=== PATIENT | female | born 1955 | race African-American/Black ===

== ENCOUNTER 2019-11-08 14:43 | Inpatient (IN) | payer BC, MEDICARE ==
[~2019-11-08] VITALS: Ht 170.8 cm; Wt 83.6 kg
[~2019-11-08 14:43] MED LIST: ASPI325T8 PO; CETI10TA74 PO; DILT240C2 PO; HYDR-2145 PO; PANT40TA77 PO
[2019-11-08] MEDS ORDERED: CETIRIZINE HCL 10 MG TABLET. PO PRN (16:00)
--- NOTE | 2019-11-08 16:06 | PDOC1 ---
History and Physical Date of Admission Date of Admission DATE: 11/08/19 TIME: 16:01 Identification/Chief Complaint Chief Complaint Right thumb drainage Source Source: Patient History of Present Illness History of Present Illness Ms Goodwin is a 64 yo F w/ PMHx allergic rhinitis, palpitations who comes to ED accompanied by her . She has been having pain and drainage from her right thumb for some time. She was seen by orthopedic surgery outpatient and has surgery scheduled for 11/16/2019, however after her appointment today she noted a blister and more drainage from her right thumb. She has been having difficulty with this thumb for the last 4 years ever since a laceration. No labs available. X-ray and MRI confirmed the above. 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 Does not smoke or drink. Past Medical History Cardiovascular: HTN Past Surgical History Past Surgical History: Hysterectomy, Other Family History Family History: Other Social History ALCOHOL: none Drugs: None Current Medications Current Medications Active Scripts Active Reported Protonix (Pantoprazole Sodium) 40 Mg Tablet.dr 1 Tab PO DAILY Zyrtec (Cetirizine Hcl) 10 Mg Tablet 1 Tab PO PRN DAILY PRN Aspirin 325 Mg Tablet 975 Mg PO TID PRN PRN Cardizem Cd (Diltiazem Hcl) 240 Mg Cap.er.24h 1 Cap PO DAILY Allergies Allergies: Coded Allergies: Penicillins (Verified Allergy, Intermediate, 06/12/15) codeine (Verified Allergy, Intermediate, 06/12/15) ROS General: YES: Fatigue, Malaise; No: Chills, Night Sweats, Appetite, Other PSYCHOLOGICAL ROS: YES: Anxiety; No: Behavioral Disorder, Concentration difficultie, Decreased libido, Depression, Disorientation, Hallucinations, Hostility, Irritablity, Memory difficulties, Mood Swings, Obsessive thoughts, Physical abuse, Sexual abuse, Sleep disturbances, Suicidal ideation, Other Eyes: No Blurry vision, No Decreased vision, No Double vision, No Dry eyes, No Excessive tearing, No Eye Pain, No Itchy Eyes, No Loss of vision, No Photophobia, No Scotomata, No Uses contacts, No Uses glasses, No Other HEENT: No: Heacaches, Visual Changes, Hearing change, Nasal congestion, Nasal discharge, Oral lesions, Sinus pain, Sore Throat, Epistaxis, Sneezing, Snoring, Tinnitus, Vertigo, Vocal changes, Other ALLERGY AND IMMUNOLOGY: No: Hives, Insect Bite Sensitivity, Itchy/Watery Eyes, Nasal Congestion, Post Nasal Drip, Seasonal Allergies, Other Hematological and Lymphatic: No: Bleeding Problems, Blood Clots, Blood Transfusions, Brusing, Night Sweats, Pallor, Swollen Lymph Nodes, Other ENDOCRINE: No: Breast Changes, Galactorrhea, Hair Pattern Changes, Hot Flashes, Malaise/lethargy, Mood Swings, Palpitations, Polydipsia/polyuria, Skin Changes, Temperature Intolerance, Unexpected Weight Changes, Other Breast: No New/Changing Breast Lumps, No Nipple changes, No Nipple discharge, No Other Respiratory: No: Cough, Hemoptysis, Orthopnea, Pleuritic Pain, Shortness of breath, SOB with excertion, Sputum Changes, Stridor, Tachypnea, Wheezing, Other Cardiovascular: No Chest Pain, No Palpitations, No Orthopnea, No Paroxysmal Noc. Dyspnea, No Edema, No Lt Headedness, No Other Gastrointestinal: No Nausea, No Vomiting, No Abdominal Pain, No Diarrhea, No Constipation, No Melena, No Hematochezia, No Other Genitourinary: No Dysuria, No Frequency, No Incontinence, No Hematuria, No Retention, No Discharge, No Urgency, No Pain, No Flank Pain, No Other, No , No , No , No , No , No , No Musculoskeletal: Yes Pain In: (right thumb); No Gait Disturbance, No Joint Pain, No Joint Stiffness, No Joint Swelling, No Muscle Pain, No Muscular Weakness, No Swelling In:, No Other Neurological: No Behavorial Changes, No Bowel/Bladder ControlChng, No Confusion, No Dizziness, No Gait Disturbance, No Headaches, No Impaired Coord/balance, No Memory Loss, No Numbness/Tingling, No Seizures, No Speech Problems, No Tremors, No Visual Changes, No Weakness, No Other Skin: Yes Rash, Yes Skin Lesion Changes; No Dry Skin, No Eczema, No Hair Changes, No Lumps, No Mole Changes, No Mottling, No Nail Changes, No Pruritus, No Other, No Acne Physical Exam General: Alert, Oriented X3, Cooperative, No acute distress HEENT: Atraumatic, PERRLA, EOMI, Mucous membr. moist/pink Lungs: Clear to auscultation, Normal air movement Heart: S1S2, RRR, no thrills, no rubs, no gallops, no murmurs Abdomen: Normal bowel sounds, Soft, No tenderness, No hepatosplenomegaly, No masses Rectal Exam: not examined Extremities: No clubbing, No cyanosis, No edema, Normal pulses, Other (Right thumb with medial proximal phalanx blister with drainage) Skin: No rashes, No breakdown, No significant lesion Neuro: Normal gait, Normal speech, Strength at 5/5 X4 ext, Normal tone, Sensation intact, Cranial nerves 3-12 NL, Reflexes 2+ Psych/Mental Status: Mental status NL, Mood NL Vitals Vitals Vital Signs Date Time Temp Pulse Resp B/P (MAP) Pulse Ox O2 Delivery O2 Flow Rate FiO2 11/08/19 15:05 97.7 117 14 170/85 (113) 96 Room Air 97.7 Images Images 10/25/2019: MRI confirmed osteomyelitis of right thumb. Right thumb XR: 3 views right thumb show lucency and cortical expansion of the base of the pr oximal phalanx right thumb with associated soft tissue swelling and demineralization of the radial aspect of the base of the proximal phalanx. The margins of the lytic lesion in the base of the proximal phalanx are well defined but show no surrounding sclerosis. No definite intra-articular extension. Rest of the bones are unremarkable IMPRESSION: Radiographic findings are nonspecific but compatible with a Greg's abscess with soft tissue extension on the radial aspect of the proximal phalanx right thumb. Correlate with MR imaging results. VTE Prophylaxis Ordered VTE Prophylaxis Devices: Yes VTE Pharmacological Prophylaxi: No Assessment/Plan Assessment/Plan A/P: Right thumb osteomyelitis and abscess - with drainage. Will need surgery and buttermaker antibiotics given known bone involvement. She is aware of likely need for PICC placement. Will consult ID as well. Anxiety - related to symptoms and work Palpitations - on diltiazem, will continue FEN - General diet PPX - SCDs FULL CODE Dispo - inpatient Justifications for Admission Other Justification ENRRIQUE DE LEON MD Nov 08, 2019 16:06
--- NOTE | 2019-11-08 16:17 | PHYS DOC ---
Past Medical History Past Medical History: Hypertension Past Surgical History: Cholecystectomy, Hysterectomy Smoking Status: Never Smoker Alcohol Use: None Drug Use: None General Adult EDM: Chief Complaint: THUMB HPI: HPI: Patient is a 64 year old AA female who presents to the emergency department with complaints of increased swelling in her right thumb after seeing Dr. Ghotra in the office today. Patient reports she has osteomyelitis of her right thumb and she is supposed to have surgery. She complains of intermittent pain in the right thumb. She denies any recent injury or trauma. She states that she has been fighting osteomyelitis for the last 4 years after she had to have sutures. The patient denies any new injury or recent trauma. She denies any fever, cough, shortness of breath, nausea, vomiting, diarrhea, or abdominal pain. She denies any drainage from the site. She currently denies any pain. Review of Systems: Review of Systems: Constitutional: Denies fever or chills. [] Respiratory: Denies cough or shortness of breath. [] GI: Denies abdominal pain, nausea, vomiting, or diarrhea. [] : Denies dysuria. [] Musculoskeletal: See HPI Integument: See HPI Neurologic: Denies focal weakness or sensory changes. [] Complete ROS is negative unless otherwise stated in the HPI. Heart Score: Risk Factors: Risk Factors: DM, Current or recent (<one month) smoker, HTN, HLP, family history of CAD, obesity. Risk Scores: Score 0 - 3: 2.5% MACE over next 6 weeks - Discharge Home Score 4 - 6: 20.3% MACE over next 6 weeks - Admit for Clinical Observation Score 7 - 10: 72.7% MACE over next 6 weeks - Early Invasive Strategies Current Medications: Current Medications Medications (Trade) Dose Ordered Sig/Gage Start Time Stop Time Status Last Admin Dose Admin Cetirizine HCl (ZyrTEC) 10 mg PRN DAILY PRN 11/08/19 16:00 Diltiazem HCl (Cardizem 24hr Cd) 240 mg DAILY 11/09/19 09:00 Pantoprazole Sodium (Protonix) 40 mg DAILYAC 11/09/19 07:30 Allergies: Allergies: Allergies Coded Allergies Type Severity Reaction Last Updated Verified Penicillins Allergy Intermediate 06/12/15 Yes codeine Allergy Intermediate 06/12/15 Yes Physical Exam: PE: Constitutional: Well developed, well nourished, no acute distress, non-toxic appearance. [] HENT: Normocephalic, atraumatic, bilateral external ears normal, nose normal. [] Eyes: PERRLA, EOMI, conjunctiva normal, no discharge. [] Neck: Normal range of motion, no stridor. [] Cardiovascular:Heart rate regular rhythm Lungs & Thorax: Respirations even and unlabored, no retractions, no respiratory distress Skin: Warm, dry, no erythema, no rash; 1 cm diameter area of purulent drainage noted to right thumb no active bleeding or drainage noted, no surrounding warmth [] Extremities: Right thumb: 1+ edema, PMS intact, no cyanosis Neurologic: Alert and oriented X 3, no focal deficits noted. [] Psychologic: Affect normal, judgement normal, mood normal. [] Current Patient Data: Vital Signs: Vital Signs Date Time Temp Pulse Resp B/P (MAP) Pulse Ox O2 Delivery O2 Flow Rate FiO2 11/08/19 15:05 97.7 117 14 170/85 (113) 96 Room Air 97.7 EKG: EKG: [] Radiology/Procedures: Radiology/Procedures: [] Course & Med Decision Making: Course & Med Decision Making Pertinent Labs and Imaging studies reviewed. (See chart for details) 1545- Spoke with Dr. Del Valle, will admit pt to the hospitalist and have patient be NPO after midnight. 1559-spoke with Dr. Monte who is the admitting physician, and care was assumed following discussion of patient. Will admit pt to med/surg for R thumb osteomyelitis Patient's vital signs stable. Patient remains afebrile, appears nontoxic, respirations even and unlabored. [] Dragon Disclaimer: Dragon Disclaimer: This electronic medical record was generated, in whole or in part, using a voice recognition dictation system. Departure Departure Impression: Primary Impression: Finger osteomyelitis, right Disposition: ADMITTED INPATIENT Admitting Physician: DAVID (Daisy) Condition: STABLE Referrals: DASHAWN MAO MD (PCP) Justicifation of Admission Dx: Justifications for Admission: Justification of Admission Dx: Yes Sepsis: Infection JANNET ELIAS WIND [employer] TECHNICIAN Nov 08, 2019 16:17
[2019-11-08] MEDS ORDERED: LORazepam 0.5 MG TABLET PO ONE (16:45)
[2019-11-08 17:06] LABS: BASO % 1 % (0-3); EOS % 0 % (0-3); HEMATOCRIT 41.1 % (36.0-47.0); LYMPH # 1.3 x10^3/uL (1.0-4.8); LYMPH % 21 % (24-48); MEAN CORPUSCULAR HEMOGLOBIN 30 pg (25-35); MEAN CORPUSCULAR HGB CONC 34 g/dL (31-37); MEAN CORPUSCULAR VOLUME 88 fL (79-100); MONO # 0.6 x10^3/uL (0.0-1.1); MONO % 10 % (0-9); NEUT # 4.3 x10^3/uL (1.8-7.7); NEUT % 68 % (31-73); PLATELET COUNT 250 x10^3/uL (140-400); RED BLOOD COUNT 4.65 x10^6/uL (3.50-5.40); RED CELL DISTRIBUTION WIDTH 13.8 % (11.5-14.5); WHITE BLOOD COUNT 6.3 x10^3/uL (4.0-11.0)
[2019-11-08 17:17] LABS: CALCIUM 9.9 mg/dL (8.5-10.1); CREATININE 0.9 mg/dL (0.6-1.0); GFR 75.8; POTASSIUM 3.3 mmol/L (3.5-5.1)
[2019-11-08 17:22] LABS: ALBUMIN 4.1 g/dL (3.4-5.0); TOTAL BILIRUBIN 0.3 mg/dL (0.2-1.0); TOTAL PROTEIN 8.1 g/dL (6.4-8.2)
[2019-11-08] MEDS ORDERED: ONDANSETRON PF 4 MG/2 ML VIAL. IV PRN (17:30)
[2019-11-08] MEDS ORDERED: ACETAMINOPHEN 325 MG TABLET. PO PRN (17:30)
[2019-11-08 18:08] LABS: BILIRUBIN,URINE NEGATIVE (NEG); CLARITY,URINE CLEAR; COLOR,URINE YELLOW; NITRITE,URINE NEGATIVE (NEG); PH,URINE 6.5 (<5.0-8.0); PROTEIN,URINE NEGATIVE (NEG-TRACE); UROBILINOGEN,URINE 0.2 mg/dL (0.2 mg/dL)
[2019-11-08 18:13] LABS: BACTERIA,URINE 0 /HPF (0-FEW); WBC,URINE 0 /HPF (0-4)
[2019-11-08 18:49] VITALS: BP 150/92
[2019-11-08 19:20] VITALS: BP 149/82
[2019-11-08] MEDS ORDERED: POTASSIUM CHLORIDE 20 MEQ TABLET.ER. PO ONE (20:30)
[2019-11-08] MEDS ORDERED: ZOLPIDEM 5 MG TABLET. PO PRN (21:00)
[2019-11-08 23:00] VITALS: BP 149/99
[2019-11-09 03:00] VITALS: BP 161/87
[2019-11-09 05:38] LABS: CALCIUM 10.3 mg/dL (8.5-10.1); CREATININE 0.9 mg/dL (0.6-1.0); GFR 75.8; MAGNESIUM 1.7 mg/dL (1.8-2.4); POTASSIUM 3.7 mmol/L (3.5-5.1)
[2019-11-09 07:00] VITALS: BP 135/89
[2019-11-09] MEDS: PANTOPRAZOLE 40 MG TABLET.DR. PO SCH (07:30)
--- NOTE | 2019-11-09 08:54 | PDOC ---
Infectious Disease Note Vital Sign Vital Signs Vital Signs Date Time Temp Pulse Resp B/P (MAP) Pulse Ox O2 Delivery O2 Flow Rate FiO2 11/09/19 08:27 85 161/87 11/09/19 03:00 97.7 17 99 Room Air 97.7 Labs Lab Laboratory Tests Test 11/08/19 15:47 11/08/19 16:40 11/08/19 16:52 11/08/19 16:54 C-Reactive Protein, Quantitative < 0.5 mg/L (0-3.3) Urine Collection Type Void Urine Color Yellow Urine Clarity Clear Urine pH 6.5 (<5.0-8.0) Urine Specific [place] 1.015 (1.000-1.030) Urine Protein Negative mg/dL (NEG-TRACE) Urine Glucose (UA) Negative mg/dL (NEG) Urine Ketones (Stick) Negative mg/dL (NEG) Urine Blood Trace (NEG) Urine Nitrite Negative (NEG) Urine Bilirubin Negative (NEG) Urine Urobilinogen Dipstick 0.2 mg/dL (0.2 mg/dL) Urine Leukocyte Esterase Negative (NEG) Urine RBC 1-2 /HPF (0-2) Urine WBC 0 /HPF (0-4) Urine Bacteria 0 /HPF (0-FEW) Urine Mucus Slight /LPF White Blood Count 6.3 x10^3/uL (4.0-11.0) Red Blood Count 4.65 x10^6/uL (3.50-5.40) Hemoglobin 14.0 g/dL (12.0-15.5) Hematocrit 41.1 % (36.0-47.0) Mean Corpuscular Volume 88 fL (79-100) Mean Corpuscular Hemoglobin 30 pg (25-35) Mean Corpuscular Hemoglobin Concent 34 g/dL (31-37) Red Cell Distribution Width 13.8 % (11.5-14.5) Platelet Count 250 x10^3/uL (140-400) Neutrophils (%) (Auto) 68 % (31-73) Lymphocytes (%) (Auto) 21 % (24-48) Monocytes (%) (Auto) 10 % (0-9) Eosinophils (%) (Auto) 0 % (0-3) Basophils (%) (Auto) 1 % (0-3) Neutrophils # (Auto) 4.3 x10^3/uL (1.8-7.7) Lymphocytes # (Auto) 1.3 x10^3/uL (1.0-4.8) Monocytes # (Auto) 0.6 x10^3/uL (0.0-1.1) Eosinophils # (Auto) 0.0 x10^3/uL (0.0-0.7) Basophils # (Auto) 0.0 x10^3/uL (0.0-0.2) Sodium Level 139 mmol/L (136-145) Potassium Level 3.3 mmol/L (3.5-5.1) Chloride Level 101 mmol/L (98-107) Carbon Dioxide Level 28 mmol/L (21-32) Anion Gap 10 (6-14) Blood Urea Nitrogen 13 mg/dL (7-20) Creatinine 0.9 mg/dL (0.6-1.0) Estimated GFR (Cockcroft-Gault) 75.8 BUN/Creatinine Ratio 14 (6-20) Glucose Level 115 mg/dL (70-99) Calcium Level 9.9 mg/dL (8.5-10.1) Total Bilirubin 0.3 mg/dL (0.2-1.0) Aspartate Amino Transf (AST/SGOT) 21 U/L (15-37) Alanine Aminotransferase (ALT/SGPT) 24 U/L (14-59) Alkaline Phosphatase 72 U/L (46-116) Total Protein 8.1 g/dL (6.4-8.2) Albumin 4.1 g/dL (3.4-5.0) Albumin/Globulin Ratio 1.0 (1.0-1.7) SARS-CoV-2 Antigen (Rapid) Negative (NEGATIVE) Test 11/09/19 04:40 Sodium Level 140 mmol/L (136-145) Potassium Level 3.7 mmol/L (3.5-5.1) Chloride Level 104 mmol/L (98-107) Carbon Dioxide Level 28 mmol/L (21-32) Anion Gap 8 (6-14) Blood Urea Nitrogen 10 mg/dL (7-20) Creatinine 0.9 mg/dL (0.6-1.0) Estimated GFR (Cockcroft-Gault) 75.8 Glucose Level 95 mg/dL (70-99) Calcium Level 10.3 mg/dL (8.5-10.1) Magnesium Level 1.7 mg/dL (1.8-2.4) Objective Assessment pt seen, consult dictated Plan Plan of Care / ALFIE IRWIN MD Nov 09, 2019 08:54
--- NOTE | 2019-11-09 09:42 | NUR ---
SW following. Discussed with RN, pt from home with , room air, NPO. I&D today. SW will continue to follow for any discharge planning needs.
--- NOTE | 2019-11-09 09:43 | CONS ---
DATE OF CONSULTATION: 11/09/2019 REQUESTING PHYSICIAN: Dr. Villa. REASON FOR CONSULTATION: Thumb infection. HISTORY OF PRESENT ILLNESS: This is a 64-year-old -[place] female who I have seen in the office recently for this problem. The patient was referred to me by primary care for osteomyelitis of the thumb. The patient noticed swelling or a blister on the right thumb at the base of the thumb just a few days before I saw her. She reports having a laceration in 2016 and she thinks that may have anything to do with that, although she did not report any infection post laceration repair or any open wound or drainage, swelling, pain, and nothing. She actually started noticing some pain about 2 or 3 months ago and then she noticed the swelling. Before 2 or 3 months, she has had no symptoms or problem with that thumb or that area where approximately the laceration was repaired 4 years ago. The patient subsequently seen by primary care, x-ray was done, an MRI was done and the patient was referred to me and I referred her then. The patient had received a couple or 3 rounds of antibiotics by primary care, which I stopped and talked to Dr. Del Valle and referred her to Dr. Del Valle for I and D and getting a sample without any antibiotics on board, although the patient had received already a couple of rounds before. The patient did see Dr. Del Valle and surgery was scheduled and before then, the swelling got worse and she started draining, hence she came in and got admitted. The patient is supposed to have surgery today. The patient denies any fever, denies any nausea, vomiting, diarrhea. Denies any chest pain, shortness of breath, abdominal pain or new trauma or anything. PAST MEDICAL HISTORY: Positive for hypertension. PAST SURGICAL HISTORY: Has had hysterectomy. SOCIAL HISTORY: Negative for smoking, alcohol, or illicit drug use. ALLERGIES: ALLERGIC TO PENICILLIN. REVIEW OF SYSTEMS: As per HPI, all other systems reviewed and are negative. CURRENT MEDICATIONS: Reviewed. PHYSICAL EXAMINATION: GENERAL: Alert and oriented female, not in distress. VITAL SIGNS: Stable, afebrile. HEENT: NAD. NECK: Supple, no JVP, no lymphadenopathy. LUNGS: Clear. HEART: S1, S2 regular. ABDOMEN: Soft, nontender, no organomegaly. EXTREMITIES: No edema or cyanosis. SKIN: Unremarkable. Right thumb had swelling, which right now is not draining, appears to be abscess clinically. Rest of skin examination unremarkable. NEUROLOGIC: The patient is neurologically alert, awake and appropriate. No focal neurologic deficit. LABORATORY DATA: X-ray of the right hand showed radiographic findings are nonspecific, but compatible with a Greg's abscess with soft tissue extension onto the radial aspect of the proximal phalanx of the right thumb. The patient did have an MRI, which actually was more wishy-washy for what she has, could be this, could be that was as I remember, I do not have the report with me right now. CBC, white count is normal. Platelets are normal. BUN and creatinine is normal. Her C-reactive protein is less than 0.5. IMPRESSION: 1. Right thumb cold abscess. Inflammatory markers are not elevated. It could be cyst opening up or it could be tumor liquefied or it could be infection, which is very unusual. I do not believe there was anything to do with her laceration 4 years ago. 2. Hypertension. RECOMMEND: I and D has been planned. I specifically asked for bacterial, fungal and AFB stain and culture and especially also not to use the swab for AFB, need a material. This was also conveyed to Dr. Del Valle as well as to the OR staff through the patient's nurse and once we get the material out, then we will start her on empiric antibiotics until the culture results are available, supportive care and we will continue to follow. Discussed with the at the bedside. ALFIE IRWIN MD DR: ASHANTI/prashant JOB#: [id number] / [id number]
[2019-11-09 11:00] VITALS: BP 140/90
--- NOTE | 2019-11-09 12:41 | PDOC ---
[employer] PROGRESS NOTE Date of Service DOS: DATE: 11/09/19 TIME: 12:33 Chief Complaint Chief Complaint RIGHT thumb drainage proceeded by blister RIGHT thumb osteomyelitis Lacertion of RIGHT thumb 4 years ago with continued difficulty with healing History of Present Illness History of Present Illness 11/09/2019 Patient seen and examined Some drainage appreciated on RIGHT thumb Significant other at bedside Awaiting I&D scheduled for this afternoon History of Present Illness Ms Goodwin is a 64 yo F w/ PMHx allergic rhinitis, palpitations who comes to ED accompanied by her . She has been having pain and drainage from her right thumb for some time. She was seen by orthopedic surgery outpatient and has surgery scheduled for 11/16/2019, however after her appointment today she noted a blister and more drainage from her right thumb. She has been having difficulty with this thumb for the last 4 years ever since a laceration. No labs available. X-ray and MRI confirmed the above. 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 Does not smoke or drink. Vitals/I&O Vitals/I&O: Vital Signs Date Time Temp Pulse Resp B/P (MAP) Pulse Ox O2 Delivery O2 Flow Rate FiO2 11/09/19 11:00 97.8 103 16 140/90 (107) 99 Room Air 97.8 I & O 11/08/19 11/08/19 11/09/19 15:00 23:00 07:00 Intake Total 0 ml 0 ml Balance 0 ml 0 ml Physical Exam General: Alert, Oriented X3, Cooperative, No acute distress Extremities: No clubbing, No cyanosis, No edema, Other (Right thumb with medial proximal phalanx blister with drainage) Skin: No rashes, No breakdown, No significant lesion Labs Labs: Laboratory Tests Test 11/08/19 15:47 11/08/19 16:40 11/08/19 16:52 11/08/19 16:54 C-Reactive Protein, Quantitative < 0.5 mg/L (0-3.3) Urine Collection Type Void Urine Color Yellow Urine Clarity Clear Urine pH 6.5 (<5.0-8.0) Urine Specific [place] 1.015 (1.000-1.030) Urine Protein Negative mg/dL (NEG-TRACE) Urine Glucose (UA) Negative mg/dL (NEG) Urine Ketones (Stick) Negative mg/dL (NEG) Urine Blood Trace (NEG) Urine Nitrite Negative (NEG) Urine Bilirubin Negative (NEG) Urine Urobilinogen Dipstick 0.2 mg/dL (0.2 mg/dL) Urine Leukocyte Esterase Negative (NEG) Urine RBC 1-2 /HPF (0-2) Urine WBC 0 /HPF (0-4) Urine Bacteria 0 /HPF (0-FEW) Urine Mucus Slight /LPF White Blood Count 6.3 x10^3/uL (4.0-11.0) Red Blood Count 4.65 x10^6/uL (3.50-5.40) Hemoglobin 14.0 g/dL (12.0-15.5) Hematocrit 41.1 % (36.0-47.0) Mean Corpuscular Volume 88 fL (79-100) Mean Corpuscular Hemoglobin 30 pg (25-35) Mean Corpuscular Hemoglobin Concent 34 g/dL (31-37) Red Cell Distribution Width 13.8 % (11.5-14.5) Platelet Count 250 x10^3/uL (140-400) Neutrophils (%) (Auto) 68 % (31-73) Lymphocytes (%) (Auto) 21 % (24-48) Monocytes (%) (Auto) 10 % (0-9) Eosinophils (%) (Auto) 0 % (0-3) Basophils (%) (Auto) 1 % (0-3) Neutrophils # (Auto) 4.3 x10^3/uL (1.8-7.7) Lymphocytes # (Auto) 1.3 x10^3/uL (1.0-4.8) Monocytes # (Auto) 0.6 x10^3/uL (0.0-1.1) Eosinophils # (Auto) 0.0 x10^3/uL (0.0-0.7) Basophils # (Auto) 0.0 x10^3/uL (0.0-0.2) Sodium Level 139 mmol/L (136-145) Potassium Level 3.3 mmol/L (3.5-5.1) Chloride Level 101 mmol/L (98-107) Carbon Dioxide Level 28 mmol/L (21-32) Anion Gap 10 (6-14) Blood Urea Nitrogen 13 mg/dL (7-20) Creatinine 0.9 mg/dL (0.6-1.0) Estimated GFR (Cockcroft-Gault) 75.8 BUN/Creatinine Ratio 14 (6-20) Glucose Level 115 mg/dL (70-99) Calcium Level 9.9 mg/dL (8.5-10.1) Total Bilirubin 0.3 mg/dL (0.2-1.0) Aspartate Amino Transf (AST/SGOT) 21 U/L (15-37) Alanine Aminotransferase (ALT/SGPT) 24 U/L (14-59) Alkaline Phosphatase 72 U/L (46-116) Total Protein 8.1 g/dL (6.4-8.2) Albumin 4.1 g/dL (3.4-5.0) Albumin/Globulin Ratio 1.0 (1.0-1.7) SARS-CoV-2 Antigen (Rapid) Negative (NEGATIVE) Test 11/09/19 04:40 Sodium Level 140 mmol/L (136-145) Potassium Level 3.7 mmol/L (3.5-5.1) Chloride Level 104 mmol/L (98-107) Carbon Dioxide Level 28 mmol/L (21-32) Anion Gap 8 (6-14) Blood Urea Nitrogen 10 mg/dL (7-20) Creatinine 0.9 mg/dL (0.6-1.0) Estimated GFR (Cockcroft-Gault) 75.8 Glucose Level 95 mg/dL (70-99) Calcium Level 10.3 mg/dL (8.5-10.1) Magnesium Level 1.7 mg/dL (1.8-2.4) Review of Systems Review of Systems: denies SOB denies N/V/D Assessment and Plan Assessmemt and Plan Problems Medical Problems: (1) Finger osteomyelitis, right Status: Acute Assessment RIGHT thumb drainage proceeded by blister RIGHT thumb osteomyelitis Laceration of RIGHT thumb 4 years ago with continued difficulty with healing Plan Continue IV fluids Antibiotics per IV I&D planned for 11/08 DVT prophylaxis Discussed with RN Discussed with case managment Full code Comment Review of Relevant I have reviewed the following items rashard (where applicable) has been applied. Medications: Current Medications Medications (Trade) Dose Ordered Sig/Gage Route PRN Reason Start Time Stop Time Status Last Admin Dose Admin Diltiazem HCl (Cardizem 24hr Cd) 240 mg DAILY PO 11/09/19 09:00 11/09/19 08:27 Lorazepam (Ativan) 0.5 mg 1X ONCE PO 11/08/19 16:45 11/08/19 16:46 DC 11/08/19 17:13 Zolpidem Tartrate (Ambien) 5 mg PRN QHS PRN PO INSOMNIA 11/08/19 21:00 11/08/19 21:45 Ondansetron HCl (Zofran) 4 mg PRN Q4HRS PRN IV NAUSEA/VOMITING 11/08/19 17:30 11/09/19 08:26 Potassium Chloride (Klor-Con) 40 meq 1X ONCE PO 11/08/19 20:30 11/08/19 20:31 DC 11/08/19 20:24 Justifications for Admission Other Justification YORDY PLIETEZ III DO Nov 09, 2019 12:41
[2019-11-09] MEDS ORDERED: ONDANSETRON PF 4 MG/2 ML VIAL. ONE (13:16)
[2019-11-09] MEDS ORDERED: LIDOCAINE 2% PF 5 ML VIAL. ONE (13:16)
[2019-11-09] MEDS ORDERED: PROPOFOL 10 MG/ML (20ML) VIAL. IV ONE (13:16)
[2019-11-09] MEDS ORDERED: DEXAMETHASONE SOD PHOS 4 MG/ML VIAL ONE (13:16)
[2019-11-09] MEDS ORDERED: fentaNYL PF VIAL 100 MCG/2 ML VIAL ONE (13:16)
[2019-11-09] MEDS: IV RINGERS,LACTATED 1000ML 1,000 ML IV SCH ×2 (14:10→22:00)
[2019-11-09] MEDS ORDERED: MIDAZOLAM HCL/PF 2 MG/2 ML VIAL. ONE (14:20)
[2019-11-09] MEDS ORDERED: VANCOMYCIN 1 GM VIAL. ONE (14:57)
[2019-11-09] MEDS ORDERED: BUPIVACAINE-EPI 0.5%-1:200000 MPF 30 ML VIAL. ONE (15:06)
[2019-11-09] MEDS ORDERED: SEVOFLURANE 31 TO 60 MINUTES. IH ONE (15:18)
--- NOTE | 2019-11-09 15:33 | PDOC4 ---
Operative Note Operative Note Date of Procedure: November 09, 2019 Pre-Op Diagnosis: Acute osteomyelitis of phalanx of right hand - M86.141 (right thumb, osteomyelitis with bone abscess) Post-Op Diagnosis: Acute osteomyelitis of phalanx of right hand - M86.141 (right thumb, osteomyelitis with bone abscess) Procedure: Right thumb, incision of bone cortex, for osteomyelitis and bone abscess CPT 55658 Surgeon: Jason Del Valle MD Medical Technician Assistant: CRISTINA Moscoso Anesthesia: General EBL: 10 mL Specimens Obtained: Abscess tissue was sent in 2 separate specimen cups, one specimen is for Gram stain with aerobic, anaerobic and AFB. The other specimen cup with tissue is for fungal culture. There was not enough additional abscess material for pathology. Complications: none Drains: none Tourniquet: 250 mm Hg for 7 minutes Findings: Purulent drainage is present, and has developed since my examination yesterday. The findings were consistent with a bone abscess and osteomyelitis. A liquefied tumor is a remote possibility. Indications for Procedure: This patient is a 64-year-old with right thumb pain drainage and swelling. She did have a remote laceration to this about 5 years ago. X-rays MRI and examination are consistent mostly with osteomyelitis and a bone abscess which has begun to spontaneously drain. I had seen her in the office yesterday, and there was no drainage at that time and had scheduled her for surgery on a more elective basis for next week, however overnight the thumb began purulent drainage and I advised her to be admitted to the hospital and proceed with surgery more urgently because of the opening and drainage. She and I discussed the potential risks of surgery including digital nerve injury, tendon injury, recurrent or persistent infection, the potential for other diagnoses, development of stiffness, persistent drainage, scarring, stiffness, or other potential surgical or anesthetic complications. All of her questions about surgery were answered and she desires to proceed. Written consent was obtained. Procedure in Detail: The patient was identified in the preoperative holding area. The correct right thumb was marked by me. The patient was taken to the operating room where general anesthetic was used. The patient was positioned supine on the operating table and an arm board hand table was used. A tourniquet was applied to the upper portion of the limb. A timeout procedure was performed. No antibiotics were given, so that accurate cultures could be obtained. The limb was prepared circumferentially from the fingertips to the tourniquet with ChloraPrep solution. Sterile drapes were applied. An Esmarch bandage was used to exsanguinate the limb and the tourniquet was inflated to 250 mmHg. A dorsal lateral skin incision was used, which is slightly dorsal to the area where there is spontaneous drainage and a small skin abscess. This was to avoid flexor tendon injury and avoid neurovascular injury, and is along the radial border of the thumb at the radial side of the extensor tendon. A 15 blade scalpel was used for the incision. I used a 3.5 power extended field loops throughout to avoid neurovascular or tendon injury. Purulent drainage was noted at the incision. Once the skin incision was made, the area of bone liquefication was noted along the proximal phalanx, where there is perforation in the cortex. I used a small curette and was able to withdraw to small areas of the internal tissue, which I sent for specimens as above. There was not enough additional tissue to be sent for pathology. This has the clinical appearance of infection and osteomyelitis. Curettage was used throughout the margins of the internal portion of the phalanx. Betadine lavage was used. Copious saline irrigation was used. The tourniquet was released. Bipolar electrocautery was used carefully for hemostasis, and attempt was made to prevent any neurovascular injury. Final saline irrigation was performed. Outer gloves were changed. The skin edges were injected with 10 mL of 0.5% bupivacaine with epinephrine. A small amount of vancomycin powder (estimated 100 mg) was placed within the bone defect for local high-dose antibiotic coverage. The incision was closed in a single layer with #3-0 Prolene interrupted sutures by my lpn medical assistant. Needle and sponge counts were correct. There were no apparent complications. JASON DEL VALLE MD Nov 09, 2019 15:32
[2019-11-09 16:45] VITALS: BP 158/84
[2019-11-09 19:20] VITALS: BP 130/89
[2019-11-09 22:51] VITALS: BP 126/79
[2019-11-10 03:09] VITALS: BP 139/80
[2019-11-10] MEDS: PANTOPRAZOLE 40 MG TABLET.DR. PO SCH (06:18)
[2019-11-10 07:00] VITALS: BP 138/91
[2019-11-10] MEDS ORDERED: VANCOMYCIN PER PHARMACY MC PRN (09:00)
--- NOTE | 2019-11-10 09:00 | PDOC ---
Infectious Disease Note Subjective Subjective pt is feeling good, did have I and D ROS ROS no n/v/d/ Vital Sign Vital Signs Vital Signs Date Time Temp Pulse Resp B/P (MAP) Pulse Ox O2 Delivery O2 Flow Rate FiO2 11/10/19 08:33 95 138/91 11/10/19 07:00 98.0 18 99 Room Air 98.0 11/09/19 15:45 6 Physical Exam PHYSICAL EXAM GENERAL: Alert and oriented female, not in distress. VITAL SIGNS: Stable, afebrile. HEENT: NAD. NECK: Supple, no JVP, no lymphadenopathy. LUNGS: Clear. HEART: S1, S2 regular. ABDOMEN: Soft, nontender, no organomegaly. EXTREMITIES: No edema or cyanosis. SKIN: Unremarkable. Right thumb post surgical dressing not opened NEUROLOGIC: The patient is neurologically alert, awake and appropriate. No focal neurologic deficit. Labs Micro culture pending Objective Assessment IMPRESSION: 1. Right thumb cold abscess. Inflammatory markers are not elevated. It could be cyst opening up or it could be tumor liquefied or it could be infection, which is very unusual. I do not believe there was anything to do with her laceration 4 years ago. s/p I and D 2. Hypertension. Plan Plan of Care vanc and zosyn supportive care check cultures ALFIE IRWIN MD Nov 10, 2019 09:00
--- NOTE | 2019-11-10 09:01 | PDOC ---
ORTHO PROGRESS NOTES DATE: 11/10/19 TIME: 08:53 Subjective Patient states that she does not feel bad this morning and has more sensation. Post-op Day: 1 Procedure Right thumb incision of bone cortex for osteomyelitis and abscess Vitals Vital Signs Date Time Temp Pulse Resp B/P (MAP) Pulse Ox O2 Delivery O2 Flow Rate FiO2 11/10/19 08:33 95 138/91 11/10/19 07:00 98.0 18 99 Room Air 98.0 11/09/19 15:45 6 Labs Laboratory Tests Test 11/08/19 15:47 11/08/19 16:40 11/08/19 16:52 11/08/19 16:54 C-Reactive Protein, Quantitative < 0.5 mg/L (0-3.3) Urine Collection Type Void Urine Color Yellow Urine Clarity Clear Urine pH 6.5 (<5.0-8.0) Urine Specific Panther Burn 1.015 (1.000-1.030) Urine Protein Negative mg/dL (NEG-TRACE) Urine Glucose (UA) Negative mg/dL (NEG) Urine Ketones (Stick) Negative mg/dL (NEG) Urine Blood Trace (NEG) Urine Nitrite Negative (NEG) Urine Bilirubin Negative (NEG) Urine Urobilinogen Dipstick 0.2 mg/dL (0.2 mg/dL) Urine Leukocyte Esterase Negative (NEG) Urine RBC 1-2 /HPF (0-2) Urine WBC 0 /HPF (0-4) Urine Bacteria 0 /HPF (0-FEW) Urine Mucus Slight /LPF White Blood Count 6.3 x10^3/uL (4.0-11.0) Red Blood Count 4.65 x10^6/uL (3.50-5.40) Hemoglobin 14.0 g/dL (12.0-15.5) Hematocrit 41.1 % (36.0-47.0) Mean Corpuscular Volume 88 fL (79-100) Mean Corpuscular Hemoglobin 30 pg (25-35) Mean Corpuscular Hemoglobin Concent 34 g/dL (31-37) Red Cell Distribution Width 13.8 % (11.5-14.5) Platelet Count 250 x10^3/uL (140-400) Neutrophils (%) (Auto) 68 % (31-73) Lymphocytes (%) (Auto) 21 % (24-48) Monocytes (%) (Auto) 10 % (0-9) Eosinophils (%) (Auto) 0 % (0-3) Basophils (%) (Auto) 1 % (0-3) Neutrophils # (Auto) 4.3 x10^3/uL (1.8-7.7) Lymphocytes # (Auto) 1.3 x10^3/uL (1.0-4.8) Monocytes # (Auto) 0.6 x10^3/uL (0.0-1.1) Eosinophils # (Auto) 0.0 x10^3/uL (0.0-0.7) Basophils # (Auto) 0.0 x10^3/uL (0.0-0.2) Sodium Level 139 mmol/L (136-145) Potassium Level 3.3 mmol/L (3.5-5.1) Chloride Level 101 mmol/L (98-107) Carbon Dioxide Level 28 mmol/L (21-32) Anion Gap 10 (6-14) Blood Urea Nitrogen 13 mg/dL (7-20) Creatinine 0.9 mg/dL (0.6-1.0) Estimated GFR (Cockcroft-Gault) 75.8 BUN/Creatinine Ratio 14 (6-20) Glucose Level 115 mg/dL (70-99) Calcium Level 9.9 mg/dL (8.5-10.1) Total Bilirubin 0.3 mg/dL (0.2-1.0) Aspartate Amino Transf (AST/SGOT) 21 U/L (15-37) Alanine Aminotransferase (ALT/SGPT) 24 U/L (14-59) Alkaline Phosphatase 72 U/L (46-116) Total Protein 8.1 g/dL (6.4-8.2) Albumin 4.1 g/dL (3.4-5.0) Albumin/Globulin Ratio 1.0 (1.0-1.7) Coronavirus (PCR) Not detected (Not Detected) SARS-CoV-2 Antigen (Rapid) Negative (NEGATIVE) Test 11/09/19 04:40 Sodium Level 140 mmol/L (136-145) Potassium Level 3.7 mmol/L (3.5-5.1) Chloride Level 104 mmol/L (98-107) Carbon Dioxide Level 28 mmol/L (21-32) Anion Gap 8 (6-14) Blood Urea Nitrogen 10 mg/dL (7-20) Creatinine 0.9 mg/dL (0.6-1.0) Estimated GFR (Cockcroft-Gault) 75.8 Glucose Level 95 mg/dL (70-99) Calcium Level 10.3 mg/dL (8.5-10.1) Magnesium Level 1.7 mg/dL (1.8-2.4) Notes Awake alert and oriented Assessment and Plan Postop day 1 status post right thumb incision of bone and cortex for osteomyelitis and abscess. Motor and sensation intact distally at the right thumb. Dressing is dry and intact. Dr. Yoon is here with patient also Awaiting culture results AVIS LOPEZ APRN Nov 10, 2019 09:01
--- NOTE | 2019-11-10 09:32 | NUR ---
SW following. Discussed with RN, pt from home with , cardiac diet, room air, ad milton. Pt had I&D yesterday (11/09/2019). Cultures pending for abx determination. SW will continue to follow.
[2019-11-10] MEDS ORDERED: MAGNESIUM SULFATE 2GM 50 ML IV ONE (09:45)
[2019-11-10] MEDS ORDERED: VANCOMYCIN 2 GM in IV NORMAL SALINE 500ML BAG 500 ML IV SCH (10:00)
[2019-11-10] MEDS: MEROPENEM 500 MG in IV NORMAL SALINE 50ML 50 ML IV SCH ×3 (10:17→20:56)
[2019-11-10 11:00] VITALS: BP 144/82
--- NOTE | 2019-11-10 11:23 | PDOC ---
[facility] PROGRESS NOTE Date of Service DOS: DATE: 11/10/19 TIME: 11:20 Chief Complaint Chief Complaint RIGHT thumb drainage proceeded by blister RIGHT thumb osteomyelitis Lacertion of RIGHT thumb 4 years ago with continued difficulty with healing History of Present Illness History of Present Illness 11/10/2019 Pt seen and examined. Dry, intact dressing noted to Right thumb. NILDA RN and CM. Discussed case with significant other in room. 11/09/2019 Patient seen and examined Some drainage appreciated on RIGHT thumb Significant other at bedside Awaiting I&D scheduled for this afternoon History of Present Illness Ms Goodwin is a 64 yo F w/ PMHx allergic rhinitis, palpitations who comes to ED accompanied by her . She has been having pain and drainage from her right thumb for some time. She was seen by orthopedic surgery outpatient and has surgery scheduled for 11/16/2019, however after her appointment today she noted a blister and more drainage from her right thumb. She has been having difficulty with this thumb for the last 4 years ever since a laceration. No labs available. X-ray and MRI confirmed the above. 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 Does not smoke or drink. Vitals/I&O Vitals/I&O: Vital Signs Date Time Temp Pulse Resp B/P (MAP) Pulse Ox O2 Delivery O2 Flow Rate FiO2 11/10/19 11:00 98.4 88 18 144/82 (102) 98 Room Air 98.4 11/09/19 15:45 6 I & O 11/09/19 11/09/19 11/10/19 15:00 23:00 07:00 Intake Total 750 ml 240 ml Output Total 20 ml Balance 730 ml 240 ml Physical Exam General: Alert, Oriented X3, Cooperative, No acute distress Heart: Normal S1, Normal S2 Lungs: Clear Abdomen: Normal bowel sounds, No tenderness Extremities: No clubbing, No cyanosis, No edema Skin: No rashes, No breakdown, No significant lesion, Other (Unremarkable. Right thumb post surgical dressing not opened) Review of Systems Review of Systems: Denies fever. Denies SOB. Assessment and Plan Assessmemt and Plan Problems Medical Problems: (1) Finger osteomyelitis, right Status: Acute Assessment: Osteromyelitis, right thumb. HX HTN Plan: Continue IV antibiotics. Awaiting cultures, pending Infectious disease input. Home Meds. PT OT Repeat labs in AM. Appreciate subspecialty input. Comment Review of Relevant I have reviewed the following items rashard (where applicable) has been applied. Medications: Current Medications Medications (Trade) Dose Ordered Sig/Gage Route PRN Reason Start Time Stop Time Status Last Admin Dose Admin Vancomycin HCl (Vancomycin) 1 gm STK-MED ONCE .ROUTE 11/09/19 14:57 11/09/19 14:57 DC 11/09/19 14:55 Bupivacaine HCl/ Epinephrine Bitart (Sensorcain-Epi 0.5%-1:220817 Mpf) 30 ml STK-MED ONCE .ROUTE 11/09/19 15:06 11/09/19 15:07 DC 11/09/19 14:55 Ringer's Solution 1,000 ml @ 125 mls/hr Q8H IV 11/09/19 14:00 11/10/19 01:59 DC 11/09/19 14:10 Meropenem 500 mg/ Sodium Chloride 50 ml @ 100 mls/hr Q8HRS IV 11/10/19 09:30 11/10/19 10:17 Vancomycin HCl 2 gm/Sodium Chloride 500 ml @ 250 mls/hr Q24H IV 11/10/19 10:00 11/10/19 10:18 Magnesium Sulfate 50 ml @ 25 mls/hr 1X ONCE IV 11/10/19 09:45 11/10/19 11:44 11/10/19 10:17 Justifications for Admission Other Justification YORDY PLEITEZ III DO Nov 10, 2019 11:23
--- NOTE | 2019-11-10 13:26 | NUR ---
Pharmacy Vancomycin Dosing Note S:Consulted to monitor and dose vancomycin started 11/10/19. O:TJ FERNÁNDEZ is a 64 year old F with Abscess Osteomyelitis . Height: 5 feet, 7.25 inches Weight: 83.6 kg [place] Body Weight: 62.18 Adjusted Body Weight: 70.75 Dosing Weight: Actual Other Antibiotics: MEROPENWM LABS: Last BUN: 10 Last Creatinine: 0.9 Creatinine Clearance: 62 mL/min Last WBC: 6.3 Last Procalcitonin: Tmax (past 24 hours): 98.4 Microbiology: I/O: Drug Levels: Last level: on at Last dose given 11/10/19 at 1018 Vancomycin Dosing: Loading Dose: 2000 mg x1 Dosing Weight: Actual Target Trough: 15-20 A: Based on: Body weight and renal function P: 1. After loading dose, start Vancomycin 1250 mg IV q12h 2. Follow up Trough level on 11/11/19 at 2130 3. Pharmacy will continue to monitor, follow and adjust therapy as needed. [facility], 11/10/19 [id number]
[2019-11-10 15:00] VITALS: BP 136/77
[2019-11-10 19:00] VITALS: BP 143/80
[2019-11-10] MEDS: LACTOBACILLUS RHAMNOSUS GG 1 CAPSULE. PO SCH (20:56)
[2019-11-10] MEDS ORDERED: VANCOMYCIN 1.25 GM in IV NORMAL SALINE 250ML 250 ML IV SCH (22:00)
[2019-11-10 23:00] VITALS: BP 138/91
[2019-11-11] MEDS: traMADol 50 MG TABLET PO PRN ×3 (00:20→21:58)
[2019-11-11 03:00] VITALS: BP 129/80
[2019-11-11] MEDS: PANTOPRAZOLE 40 MG TABLET.DR. PO SCH (06:13)
[2019-11-11] MEDS: MEROPENEM 500 MG in IV NORMAL SALINE 50ML 50 ML IV SCH (06:13)
[2019-11-11 07:00] VITALS: BP 133/79
[2019-11-11 08:27] LABS: CREATININE 1.1 mg/dL (0.6-1.0); GFR 60.1
[2019-11-11] MEDS: LACTOBACILLUS RHAMNOSUS GG 1 CAPSULE. PO SCH ×2 (10:01→21:57)
--- NOTE | 2019-11-11 10:11 | PDOC ---
Infectious Disease Note Subjective Subjective pt is feeling good, did have I and D ROS ROS no n/v/d/ Vital Sign Vital Signs Vital Signs Date Time Temp Pulse Resp B/P (MAP) Pulse Ox O2 Delivery O2 Flow Rate FiO2 11/11/19 07:00 98.0 74 18 133/79 (97) 98 Room Air 98.0 Physical Exam PHYSICAL EXAM GENERAL: Alert and oriented female, not in distress. VITAL SIGNS: Stable, afebrile. HEENT: NAD. NECK: Supple, no JVP, no lymphadenopathy. LUNGS: Clear. HEART: S1, S2 regular. ABDOMEN: Soft, nontender, no organomegaly. EXTREMITIES: No edema or cyanosis. SKIN: Unremarkable. Right thumb post surgical dressing not opened NEUROLOGIC: The patient is neurologically alert, awake and appropriate. No focal neurologic deficit. Labs Lab Laboratory Tests Test 11/11/19 07:15 Creatinine 1.1 mg/dL (0.6-1.0) Estimated GFR (Cockcroft-Gault) 60.1 Micro culture so far neg Objective Assessment IMPRESSION: 1. Right thumb cold abscess. Inflammatory markers are not elevated. It could be cyst opening up or it could be tumor liquefied or it could be infection, which is very unusual. I do not believe there was anything to do with her laceration 4 years ago. s/p I and D 2. Hypertension. Plan Plan of Care d/c ok on iv dapto and invanz wkly cbc, bun/cr, sed rate, cpk f/u with me in 2 wks in detail discussion done about antibiotics, culture, side effects, picc etc supportive care check cultures ALFIE IRWIN MD Nov 11, 2019 10:11
[2019-11-11] MEDS ORDERED: ERTAPENEM 1GM IVPB (GENERIC) 50 ML IV ONE (10:15)
--- NOTE | 2019-11-11 10:52 | NUR ---
GALINA following. Discussed with RN, pt getting a PICC line placed today, will need IV dapto and IV Invanz daily at discharge. GALINA met with pt (no isolation precautions at the time) pt would prefer to do daily outpatient infusion here at [facility] (rather than do at home). SW faxed scripts and facesheet to outpatient infusion, pt scheduled for 0900 infusion time. Pt reported she [address] herself here. Pt getting dose of Invanz prior to discharge. No further SW needs, RN notified.
[2019-11-11 11:00] VITALS: BP 135/73
[2019-11-11] MEDS: DAPTOmycin (GENERIC) IVPB 500 MG in IV NORMAL SALINE 50ML 50 ML IV SCH (11:49)
--- NOTE | 2019-11-11 12:42 | PDOC ---
[employer] [facility] PROGRESS NOTE Date of Service DOS: DATE: 11/11/19 TIME: 12:34 Chief Complaint Chief Complaint RIGHT thumb drainage proceeded by blister RIGHT thumb osteomyelitis Lacertion of RIGHT thumb 4 years ago with continued difficulty with healing History of Present Illness History of Present Illness 11/11/2019 Patient seen and examined. R thumb wound dressing clean, dry, and intact. Discussed with RN. Discussed with case management. 11/10/2019 Patient seen and examined. Dry, intact dressing noted to Right thumb. NILDA RN and CM. Discussed case with significant other in room. 11/09/2019 Patient seen and examined Some drainage appreciated on RIGHT thumb Significant other at bedside Awaiting I&D scheduled for this afternoon History of Present Illness Ms Goodwin is a 64 yo F w/ PMHx allergic rhinitis, palpitations who comes to ED accompanied by her . She has been having pain and drainage from her right thumb for some time. She was seen by orthopedic surgery outpatient and has surgery scheduled for 11/16/2019, however after her appointment today she noted a blister and more drainage from her right thumb. She has been having difficulty with this thumb for the last 4 years ever since a laceration. No labs available. X-ray and MRI confirmed the above. 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 Does not smoke or drink. Vitals/I&O Vitals/I&O: Vital Signs Date Time Temp Pulse Resp B/P (MAP) Pulse Ox O2 Delivery O2 Flow Rate FiO2 11/11/19 11:00 98.0 69 18 135/73 (93) 100 Room Air 98.0 I & O 11/10/19 11/10/19 11/11/19 15:00 23:00 07:00 Intake Total 220 ml 700 ml 600 ml Balance 220 ml 700 ml 600 ml Physical Exam Physical Exam: GENERAL: Alert and oriented female, not in distress. VITAL SIGNS: Stable, afebrile. HEENT: NAD. NECK: Supple, no JVP, no lymphadenopathy. LUNGS: Clear. HEART: S1, S2 regular. ABDOMEN: Soft, nontender, no organomegaly. EXTREMITIES: No edema or cyanosis. SKIN: Unremarkable. Right thumb post surgical dressing not opened NEUROLOGIC: The patient is neurologically alert, awake and appropriate. No focal neurologic deficit. General: Alert, Oriented X3, Cooperative, No acute distress Heart: Normal S1, Normal S2 Lungs: Clear Abdomen: Normal bowel sounds, No tenderness Extremities: No clubbing, No cyanosis, No edema Skin: No rashes, No breakdown, No significant lesion, Other (Unremarkable. Rig ht thumb post surgical dressing not opened) Labs Labs: Laboratory Tests Test 11/11/19 07:15 Creatinine 1.1 mg/dL (0.6-1.0) Estimated GFR (Cockcroft-Gault) 60.1 Review of Systems Review of Systems: Denies N/V. Denies chest pain. Assessment and Plan Assessmemt and Plan Problems Medical Problems: (1) Finger osteomyelitis, right Status: Acute Assessment: Osteromyelitis of RIGHT thumb Hx HTN Plan: Continue IV antibiotics. Continue home meds. Awaiting PICC placement. Awaiting cultures. Probably D/C with outpatient infusion antibiotics if agreeable with infectious disease. Appreciate subspecialty input. Comment Review of Relevant I have reviewed the following items rashard (where applicable) has been applied. Medications: Current Medications Medications (Trade) Dose Ordered Sig/Gage Route PRN Reason Start Time Stop Time Status Last Admin Dose Admin Vancomycin HCl 1.25 gm/Sodium Chloride 250 ml @ 167 mls/hr Q12H IV 11/10/19 22:00 11/11/19 10:12 DC 11/10/19 22:02 Lactobacillus Rhamnosus (Culturelle) 1 cap BID PO 11/10/19 21:00 11/11/19 10:01 Daptomycin 500 mg/ Sodium Chloride 50 ml @ 100 mls/hr Q24H IV 11/11/19 11:00 11/11/19 11:49 Ertapenem 50 ml @ 100 mls/hr 1X ONCE IV 11/11/19 10:15 11/11/19 10:44 DC 11/11/19 10:28 Justifications for Admission Other Justification YORDY PLEITEZ III DO Nov 11, 2019 12:42
[2019-11-11 15:00] VITALS: BP 128/70
[2019-11-11] MEDS ORDERED: TRAM50TA PO (17:55)
[2019-11-11 19:00] VITALS: BP 132/72
--- NOTE | 2019-11-11 20:27 | NUR ---
[facility] here to place PICC for patient's outpatient antibiotics. Patient upset stating, "No one explained to me today how this was going to work and I don't know if I want to get it done". This RN explained the purpose and patient's outpatient need for PICC line and also explained to patient her right to decline the procedure this evening. [facility] RN again explained entire procedure to patient, patient verbalized understanding but declined intervention this evening, stating "I'm too nervous". Dr. Yoon paged to notify of patient's decision, awaiting return call.
--- NOTE | 2019-11-11 20:48 | NUR ---
Discharge cancelled by Dr. Yoon d/t patient declining PICC insertion. MD will follow-up in AM. Per [facility] RN patient will be kept on schedule for possible placement tomorrow.
[2019-11-11 23:00] VITALS: BP 120/75
[2019-11-12 03:35] VITALS: BP 133/83
--- NOTE | 2019-11-12 05:55 | NUR ---
Educational handout in regards to PICC line insertion reviewed with patient and patient voiced no concerns or questions to this RN.
[2019-11-12] MEDS: PANTOPRAZOLE 40 MG TABLET.DR. PO SCH (05:58)
[2019-11-12 07:00] VITALS: BP 115/67
[2019-11-12] MEDS: LACTOBACILLUS RHAMNOSUS GG 1 CAPSULE. PO SCH (08:11)
--- NOTE | 2019-11-12 09:59 | PDOC ---
Infectious Disease Note Subjective Subjective pt is feeling good, did have I and D ROS ROS no n/v/d/ Vital Sign Vital Signs Vital Signs Date Time Temp Pulse Resp B/P (MAP) Pulse Ox O2 Delivery O2 Flow Rate FiO2 11/12/19 08:11 74 115/67 11/12/19 08:00 Room Air 11/12/19 07:00 98.2 16 97 98.2 Physical Exam PHYSICAL EXAM GENERAL: Alert and oriented female, not in distress. VITAL SIGNS: Stable, afebrile. HEENT: NAD. NECK: Supple, no JVP, no lymphadenopathy. LUNGS: Clear. HEART: S1, S2 regular. ABDOMEN: Soft, nontender, no organomegaly. EXTREMITIES: No edema or cyanosis. SKIN: Unremarkable. Right thumb wound and incision looks good NEUROLOGIC: The patient is neurologically alert, awake and appropriate. No focal neurologic deficit. Labs Lab Laboratory Tests Test 11/12/19 05:30 Creatine Kinase 130 U/L (26-192) Micro culture so far neg Objective Assessment IMPRESSION: 1. Right thumb cold abscess. Inflammatory markers are not elevated. It could be cyst opening up or it could be tumor liquefied or it could be infection, which is very unusual. I do not believe there was anything to do with her laceration 4 years ago. s/p I and D 2. Hypertension. Plan Plan of Care d/c ok on iv dapto and invanz wkly cbc, bun/cr, sed rate, cpk f/u with me in 2 wks in detail discussion done about antibiotics, culture, side effects, picc etc supportive care check cultures f/u with me in 2 wks wkly cbc, bun/cr, sed rate, cpk ALFIE IRWIN MD Nov 12, 2019 09:59
--- NOTE | 2019-11-12 10:01 | NUR ---
GALINA following. Discussed with RN, pt did not discharge yesterday due to refusing PICC placement. Pt getting PICC line today. SW notified outpatient infusion of pt discharging today instead. Pt will go to the ER for infusion at 0900 at the weekend and 1000 at outpatient. RN notified.
[2019-11-12 11:00] VITALS: BP 118/79
--- NOTE | 2019-11-12 11:33 | SNU/HH DC ---
DISCHARGE WITH HOME HEALTH DISCHARGE INFORMATION: Final Diagnosis: Problems Medical Problems: (1) Finger osteomyelitis, right Status: Acute Condition on Discharge: Stable CODE STATUS: Code Status: Full HOME HEALTH: Face to Face: I certify this patient is under my care and that I, or a nurse practitioner or physician's program services assistant working with me, had a face to face encounter that meets the physician face to face encounter requirements with this patient on []. Medical Complications: Other (Recent finger infection with incision and drainage) Alf For: Assess & Educate Safety RN For Eval/Treatment: Yes Physical Therapy For: Evalulation/Treatment Occupational Therapy For: Evaluation/Treatment Home Health Aide For: Self-care SCIENTIFIC DIRECTOR For: Community Resources Pt Meets Homebound Status: Fatigue w/ amb. POST DISCHARGE ORDERS: Activity Instructions for Disc: No restrictions Weight Bearing Status after Di: As tolerated DIET AFTER DISCHARGE: Cardiac FOLLOW-UP: Follow up with: Outpatient everyday at 0830 for IV antibiotics Follow Up With: Dr. Yoon in 2 weeks [phone] TREATMENT/EQUIPMENT ORDERS: Adaptive Equipment Issued: None Infusion Equipment, home use: PICC Line CERTIFICATION STATEMENT: Certification Statement: Certification Statement: Based on the above finding, I certify that this patient is confined to the home and needs intermittent long-term care, physical therapy and/or speech therapy, or continues to need occupational therapy.~ This patient is under my care, and I have initiated the establishment of the plan of care.~ This patient will be followed by myself or a community physician who will periodically review the plan of care. Home Meds Reported Medications Tramadol Hcl (TRAMADOL HCL) 50 Mg Tablet, 50 MG PO Q6HRS PRN for PAIN for 14 Days, #56 TAB 11/11/19 Cetirizine Hcl (ZYRTEC) 10 Mg Tablet, 1 TAB PO PRN DAILY PRN for ALLERGIES, #30 TAB 2 Refills 06/14/15 Hydrochlorothiazide (HYDROCHLOROTHIAZIDE TABLET ) 25 Mg Tablet, 1 TAB PO DAILY, #30 TAB 5 Refills 06/11/15 Diltiazem Hcl (CARDIZEM CD) 240 Mg Cap.er.24h, 1 CAP PO DAILY, #30 CAP 5 Refills 06/11/15 Discontinued Reported Medications Pantoprazole Sodium (PROTONIX ) 40 Mg Tablet.dr, 1 TAB PO DAILY, #30 TAB 5 Refills 06/14/15 YORDY PLEITEZ III DO Nov 12, 2019 11:33
--- NOTE | 2019-11-12 11:38 | PDOC ---
[facility] PROGRESS NOTE Date of Service DOS: DATE: 11/12/19 TIME: 11:36 Chief Complaint Chief Complaint RIGHT thumb drainage proceeded by blister RIGHT thumb osteomyelitis Lacertion of RIGHT thumb 4 years ago with continued difficulty with healing History of Present Illness History of Present Illness 11/12/2019 Patient seen and examined. R thumb wound dressing clean, dry, and intact. Discussed d/c plan with patient and spouse. Discussed with RN. Discussed with case management. 11/11/2019 Patient seen and examined. R thumb wound dressing clean, dry, and intact. Discussed with RN. Discussed with case management. 11/10/2019 Patient seen and examined. Dry, intact dressing noted to Right thumb. DW RN and CM. Discussed case with significant other in room. 11/09/2019 Patient seen and examined Some drainage appreciated on RIGHT thumb Significant other at bedside Awaiting I&D scheduled for this afternoon History of Present Illness Ms Goodwin is a 64 yo F w/ PMHx allergic rhinitis, palpitations who comes to ED accompanied by her . She has been having pain and drainage from her right thumb for some time. She was seen by orthopedic surgery outpatient and has surgery scheduled for 11/16/2019, however after her appointment today she noted a blister and more drainage from her right thumb. She has been having difficulty with this thumb for the last 4 years ever since a laceration. No labs available. X-ray and MRI confirmed the above. 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 Does not smoke or drink. Vitals/I&O Vitals/I&O: Vital Signs Date Time Temp Pulse Resp B/P (MAP) Pulse Ox O2 Delivery O2 Flow Rate FiO2 11/12/19 11:00 98.4 84 16 118/79 (92) 96 Room Air 98.4 I & O 11/11/19 11/11/19 11/12/19 14:59 22:59 06:59 Intake Total 360 ml 690 ml 440 ml Balance 360 ml 690 ml 440 ml Physical Exam Physical Exam: GENERAL: Alert and oriented female, not in distress. VITAL SIGNS: Stable, afebrile. HEENT: NAD. NECK: Supple, no JVP, no lymphadenopathy. LUNGS: Clear. HEART: S1, S2 regular. ABDOMEN: Soft, nontender, no organomegaly. EXTREMITIES: No edema or cyanosis. SKIN: Unremarkable. Right thumb wound and incision looks good NEUROLOGIC: The patient is neurologically alert, awake and appropriate. No focal neurologic deficit. General: Alert, Oriented X3, Cooperative, No acute distress Heart: Normal S1, Normal S2 Lungs: Clear Abdomen: Normal bowel sounds, No tenderness Extremities: No clubbing, No cyanosis, No edema Skin: No rashes, No breakdown, No significant lesion, Other (Unremarkable. Right thumb post surgical dressing not opened) Labs Labs: Laboratory Tests Test 11/12/19 05:30 Creatine Kinase 130 U/L (26-192) Review of Systems Review of Systems: Denies N/V. Denies SOB. Assessment and Plan Assessmemt and Plan Problems Medical Problems: (1) Finger osteomyelitis, right Status: Acute Assessment: 1) Osteromyelitis of RIGHT thumb 2) Hx HTN Plan: Continue home meds. Awaiting medline placement. Awaiting cultures. Hope to d/c home with IV antibiotics. Appreciate subspecialty input. Comment Review of Relevant I have reviewed the following items rashard (where applicable) has been applied. Justifications for Admission Other Justification YORDY PLEITEZ III DO Nov 12, 2019 11:38
[2019-11-12] MEDS: DAPTOmycin (GENERIC) IVPB 500 MG in IV NORMAL SALINE 50ML 50 ML IV SCH (12:27)
[2019-11-12 15:00] VITALS: BP 146/86
--- NOTE | 2019-11-12 16:02 | NUR ---
Discharge Note: TJ FERNÁNDEZ Discharge instructions and discharge home medications reviewed with Patient and a copy given. All questions have been answered and understanding verbalized. The following instructions and handouts were given: wound care Discontinued lines and drains: Peripheral IV intact. Patient discharged to Home or Self Care with Spouse via Ambulated
--- NOTE | 2019-11-14 13:23 | DS ---
DATE OF DISCHARGE: 11/12/2019 ADMISSION DIAGNOSIS: Osteomyelitis of the right first finger. DISCHARGE DIAGNOSIS: Postoperative incision and drainage of the right first finger. HOSPITAL COURSE: The patient is a pleasant 64-year-old female who presented with osteomyelitis of the right first finger. She was admitted. We consulted Orthopedics. She was taken for incision and drainage. Overall, she did well. We discharged with home IV antibiotics. DISPOSITION: Home. ACTIVITY: As tolerated. DIET: Low sodium. MEDICATIONS: Please see the MRAD. TOTAL TIME: 35 minutes. YORDY PLEITEZ DO DR: ROMELIA/prashant JOB#: [id number] / [id number]
== END 2019-11-12 16:26 | disposition home or self-care (01) | DRG 540 ==
LOC: ER 14:43 → 4 NORTH 15:59
PROVIDERS: ADMIT Internal Medicine; ATTEND Internal Medicine
PROC: 0X9J00Z Drainage of Right Hand with Drainage Device, Open Approach (ICD-10-PCS; principal; 2019-11-09 15:00)
DX: M86.141 Other acute osteomyelitis, right hand (principal); L02.511 Cutaneous abscess of right hand; F41.9 Anxiety disorder, unspecified; I10 Essential (primary) hypertension; Z90.710 Acquired absence of both cervix and uterus; Z90.49 Acquired absence of other specified parts of digestive tract; Z88.5 Allergy status to narcotic agent; Z88.0 Allergy status to penicillin; Z20.828 Contact with and (suspected) exposure to other viral communicable diseases
CPT/HCPCS: 36415; 80048; 80053; 81001; 82550; 82565; 83735; 85025; 86140; 87071; 87075; 87102; 87116; 87426; 99285; J0878; J1100; J1335; J2185; J2405; J2704; J3010; J3370; J3475; J7040; J7050; J7120; A4461; G0378; J7030; U0003-CS